=== PATIENT | male | born 1965 | race Caucasian/White ===

== ENCOUNTER 2018-07-24 09:50 | Emergency (ER) | payer MEDICARE, SELFPAY ==
[2018-07-24 09:51] VITALS: BP 123/73; PULSE 68; RESP 16; TEMP 36.3; O2SAT 96; BMI 26.4
--- NOTE | 2018-07-24 10:11 | EKG12_ITS ---
Test Reason : DYSRHYTHMIA Blood Pressure : / mmHG Vent. Rate : 064 BPM Atrial Rate : 064 BPM P-R Int : 152 ms QRS Dur : 092 ms QT Int : 390 ms P-R-T Axes : 050 000 007 degrees QTc Int : 402 ms Normal sinus rhythm Normal ECG Confirmed by SUSHIL NUNEZ, TREY ([id number]), editorial director ANN HILTON ([id number]) on 07/29/2018 9:08:02 AM Referred By: YOLIS Confirmed By:TREY LING MD
--- NOTE | 2018-07-24 10:11 | RAD_ITS ---
STUDY: X-RAY CHEST REASON FOR EXAM: Male, 53 years old. Shortness of breath. TECHNIQUE: PA and lateral views of the chest. COMPARISON: Comparison is made with prior study dated September 18, 2015. FINDINGS: EKG electrodes are seen. There is evidence of a focal infiltrate in the left upper lobe as well as in the left lower lobe. There is blunting of the left costophrenic angle. The right lung is clear. Normal size heart. Normal mediastinum and ama. Normal visualized pulmonary arteries. Normal visualized aortic arch and descending thoracic aorta. There are degenerative changes of the visualized thoracic spine. Normal visualized ribs, clavicles, and shoulders. There is no demonstrated abnormality of the visualized soft tissue structures of the upper abdomen. RAD/Chest PA and Lateral IMPRESSION: Focal left upper and left lower lobe infiltrates with blunting of the left costophrenic angle. Electronically Signed: Juan Diego Hawthorne MD at 11:14 EST Tel [phone], Service support ,
--- NOTE | 2018-07-24 10:17 | ED.VISSUMM ---
- ER Visit Summary Date of Service: 07/24/18 Chief Complaint: Shortness of breath History of Present Illness: The patient is a 53 M who presents with shortness of breath that has been getting worse over the past 3 days. Patient went to the urgent care today and was referred here. Patient states he has been having some blood-streaked sputum this morning. Patient states he has had a fever of 101 at home. Patient admits to diffuse myalgias. Patient states he has pain over the left side of his chest that is worse with deep breathing and coughing. Patient describes a stabbing. Patient denies any vomiting but admits to some nausea. Patient denies any abdominal pain. Patient denies any recent travel or recent surgery. Patient denies any history of blood clots or cancer. Physical Examination: Vital signs are stable. Patient is afebrile. Patient is in no acute distress. Oral mucosa is pink and moist. Neck is supple. Trachea is midline. There is no JVD noted. Heart was regular rate and rhythm. Lungs showed a few rales in the left base. There is good respiratory effort noted. Abdomen is soft and nontender. Cranial nerves II through XII are intact. There are no focal motor or sensory deficits noted. The remaining physical exam is within normal limits. Test Results: EKG showed normal sinus rhythm with a rate of 64. There are no acute ST or T wave changes. CBC, basic metabolic profile, d-dimer, and troponin were obtained. There is a mild leukocytosis of 15.0. The remaining labs are within normal limits. PA and lateral chest x-ray was obtained. There is a left upper lobe and left lower lobe infiltrate. Emergency Department Course and Treatment: Patient was given DuoNeb aerosol here. Patient was feeling better on reevaluation. Patient was given a prescription for Zithromax. Patient was also given a prescription for albuterol inhaler. Patient was instructed to follow-up with his primary care physician in 5-7 days. Patient understood and was agreeable with plan. All questions were answered. Disposition: Discharge home Impression: Community-acquired pneumonia This note was generated with [employer] software. It may contain incorrect words, spelling, and punctuation that were not noted in review of the chart prior to signing ED Disposition - Plan for ED Patient: Disposition: Home or Assisted Living Chief Complaint: Shortness of Breath Diagnosis: Community acquired pneumonia Instructions: ED Pneumonia Adult Prescriptions: Albuterol Inhaler [Ventolin Hfa] 2 puff INHALATION Q4H PRN PRN #1 inhaler PRN Reason: Wheezing Azithromycin [Zithromax Z-Anuj] 250 mg PO UD #1 box Referrals: [facility] Doctor,Out of [NON-STAFF] - Additional Instructions: Your prescriptions were electronically sent to [facility] pharmacy. Take the antibiotic until gone. Use the inhaler as needed. Follow-up with your primary care physician in 5-7 days.
--- NOTE | 2018-07-24 10:21 | ED.DCSUM_ITS ---
- ER Visit Summary Date of Service: 07/24/18 Chief Complaint: Shortness of breath History of Present Illness: The patient is a 53 M who presents with shortness of breath that has been getting worse over the past 3 days. Patient went to the urgent care today and was referred here. Patient states he has been having some blood-streaked sputum this morning. Patient states he has had a fever of 101 at home. Patient admits to diffuse myalgias. Patient states he has pain over the left side of his chest that is worse with deep breathing and coughing. Patient describes a stabbing. Patient denies any vomiting but admits to some nausea. Patient denies any abdominal pain. Patient denies any recent travel or recent surgery. Patient denies any history of blood clots or cancer. Physical Examination: Vital signs are stable. Patient is afebrile. Patient is in no acute distress. Oral mucosa is pink and moist. Neck is supple. Trachea is midline. There is no JVD noted. Heart was regular rate and rhythm. Lungs showed a few rales in the left base. There is good respiratory effort noted. Abdomen is soft and nontender. Cranial nerves II through XII are intact. There are no focal motor or sensory deficits noted. The remaining physical exam is within normal limits. Test Results: EKG showed normal sinus rhythm with a rate of 64. There are no acute ST or T wave changes. CBC, basic metabolic profile, d-dimer, and troponin were obtained. There is a mild leukocytosis of 15.0. The remaining labs are within normal limits. PA and lateral chest x-ray was obtained. There is a left upper lobe and left lower lobe infiltrate. Emergency Department Course and Treatment: Patient was given DuoNeb aerosol here. Patient was feeling better on reevaluation. Patient was given a prescription for Zithromax. Patient was also given a prescription for albuterol inhaler. Patient was instructed to follow-up with his primary care physician in 5-7 days. Patient understood and was agreeable with plan. All questions were answered. Disposition: Discharge home Impression: Community-acquired pneumonia This note was generated with [employer] software. It may contain incorrect words, spelling, and punctuation that were not noted in review of the chart prior to signing ED Disposition - Plan for ED Patient: Disposition: Home or Assisted Living Chief Complaint: Shortness of Breath Diagnosis: Community acquired pneumonia Instructions: ED Pneumonia Adult Prescriptions: Albuterol Inhaler [Ventolin Hfa] 2 puff INHALATION Q4H PRN PRN #1 inhaler PRN Reason: Wheezing Azithromycin [Zithromax Z-Anuj] 250 mg PO UD #1 box Referrals: [facility] Doctor,Out of [NON-STAFF] - Additional Instructions: Your prescriptions were electronically sent to [facility] pharmacy. Take the antibiotic until gone. Use the inhaler as needed. Follow-up with your primary care physician in 5-7 days.
[2018-07-24 10:25] VITALS: BP 118/73; PULSE 76; RESP 15; TEMP 36.3; O2SAT 96
[2018-07-24] MEDS: Ipratropium/Albuterol Sulfate 3 ML AMPUL.NEB INHALATION (10:25)
[2018-07-24 10:28] VITALS: O2SAT 96
[2018-07-24 10:33] VITALS: PULSE 78; RESP 16
[2018-07-24 10:41] LABS: Absolute Lymphocyte Count 1.56 X10^3/ul (0.83-4.51); Basophil# 0.03 X10^3/uL; Basophil% 0.2 % (0-1); Eosinophil# 0.04 X10^3/uL; Eosinophils% 0.3 % (0-5); Hemoglobin 15.6 g/dl (13.0-16.5); Lymphocyte # 1.56 X10^3/ul (4.0); Lymphocyte % 10.4 % (19-41); Mean Corp Hgb Conc 33.2 g/gl (32-36); Mean Corpuscular Hgb 30.6 pg (27.0-32.0); Mean Corpuscular Volume 92.3 fL (80-94); Mean Platelet Vol. 11.2 fl (6.2-12.0); Monocyte# 1.28 X10^3/uL; Monocyte% 8.6 % (0-10); Neutrophil # 12.01 X10^3/uL (2.7-7.7); Neutrophil % 80.2 % (47-70); Platelet Count 175 K/mm3 (150-450); RBC Distribution Width CV 13.1 % (11.6-14.6); RBC Distribution Width SD 43.3 fl (35.1-43.9); Red Blood Count 5.09 M/mm3 (4.6-6.2)
[2018-07-24 10:42] LABS: POSITIVE COUNT NO; POSITIVE DIFFERENTIAL NO; POSITIVE MORPHOLOGY NO
[2018-07-24 10:50] LABS: D-Dimer Quantitative (DVT/PE) 0.46 FEU/ug/m (0.27-0.49)
[2018-07-24 10:59] LABS: Anion Gap 8 (5-15); BUN 16 mg/dL (7-18); BUN/Creat Ratio 24.7 RATIO (10-20); Calcium,Total 9.2 mg/dL (8.5-10.1); Chloride 103 mmol/L (98-107); Creatinine, Serum 0.65 mg/dL (0.70-1.30); EST Glomerular Filtration Rate 137 mL/min (>60); Est Glom Filt Rate - Afr Amer 166 mL/min (>60); Estimated Creatinine Clearance 144.26 ml/min; Glucose 150 mg/dL (74-106); Potassium 3.9 mmol/L (3.5-5.1); Sodium Level 138 mmol/L (136-145)
[2018-07-24 11:16] VITALS: BP 122/74; PULSE 77; RESP 22; TEMP 36.3; O2SAT 92
[2018-07-24 11:42] VITALS: BP 100/59; PULSE 79; RESP 16; O2SAT 94
--- OUTSIDE RECORDS SUMMARY | 2018-09-28 05:17 | XMS RPT_ITS ---
:1965 Author Organization OHIP Care Team Providers Name Role Phone JUSTIN DARNELL Attending Unavailable Charlotte Momin Attending Unavailable Charlotte Momin Referring Unavailable Merrill, Charlotte Primary Care Unavailable Harry Hines Attending Unavailable Primay Care Physicia, No Primary Care Unavailable PROBLEMS PROBLEMS DATE TYPE CONDITION / ATTENDING STATUS SOURCE CODE 06/11/2018 Admitting Occlusion and Merrill, Active [employer] Diagnosis stenosis of [place] System bilateral Repository carotid arteries / I65.23(ICD-10) 06/11/2018 Admitting Localized Merrill, Active [employer] Diagnosis enlarged lymph [place] System nodes / Repository R59.0(ICD-10) 06/09/2018 Active Adverse effect JUSTIN DARNELL Active [facility] Other [place] synthetic Repository narcotics, initial encounter / T40.4X5A(ICD-10 ) PROCEDURES PROCEDURES No Procedure Records FoundRESULTS RESULTS 12 LEAD ELECTROCARDIOGRAM Observed: 07/29/2018 Status: F Source: [place] 9:08 AM [facility] REPOSITORY [facility] Cardiovascular Services [address] [place] [address] 35067 12 Lead EKG 07/24/18 1020 MR#: [id number] Acct: [id number] Name: CLEMENTINA LOVE Rep #: [id number] : 1965 53 From: Chao Gandhi MD Attending Dr: Status: DEP ER Ordering Dr: Harry Hines DO Date: 07/24/18 Location: ED Sex: M C Admitted: Test Reason : DYSRHYTHMIA Blood Pressure : / mmHG Vent. Rate : 064 BPM Atrial Rate : 064 BPM P-R Int : 152 ms QRS Dur : 092 ms QT Int : 390 ms P-R-T Axes : 050 000 007 degrees QTc Int : 402 ms Normal sinus rhythm Normal ECG Confirmed by CHAO GANDHI MD ([id number]), food expeditor ANN HILTON ([id number]) on 07/29/2018 9:08:02 AM Referred By: YOLIS Confirmed By:CHAO GANDHI MD 07/29/18 0908 Date Chao Gandhi MD CC: No Primary Care Physician; Harry Hines DO Signed EMERGENCY DEPARTMENT Observed: 07/24/2018 Status: F Source: [place] SUMMARY 11:40 AM [facility] REPOSITORY [facility] Medical Records Department [address] [facility] [place] [address] Emergency Department Summary 07/24/18 1017 MR#: [id number] Acct: [id number] Name: CLEMENTINA LOVE Rep #: [id number] : 1965 53 From: Harry Hines DO PCP: Care Physician, No Primary Status: REG ER - ER Visit Summary Date of Service: 07/24/18 Chief Complaint: Shortness of breath History of Present Illness: The patient is a 53 M who presents with shortness of breath that has been getting worse over the past 3 days. Patient went to the urgent care today and was referred here. Patient states he has been having some blood- streaked sputum this morning. Patient states he has had a fever of 101 at home. Patient admits to diffuse myalgias. Patient states he has pain over the left side of his chest that is worse with deep breathing and coughing. Patient describes a stabbing. Patient denies any vomiting but admits to some nausea. Patient denies any abdominal pain. Patient denies any recent travel or recent surgery. Patient denies any history of blood clots or cancer. Physical Examination: Vital signs are stable. Patient is afebrile. Patient is in no acute distress. Oral mucosa is pink and moist. Neck is supple. Trachea is midline. There is no JVD noted. Heart was regular rate and rhythm. Lungs showed a few rales in the left base. There is good respiratory effort noted. Abdomen is soft and nontender. Cranial nerves II through XII are intact. There are no focal motor or sensory deficits noted. The remaining physical exam is within normal limits. Test Results: EKG showed normal sinus rhythm with a rate of 64. There are no acute ST or T wave changes. CBC, basic metabolic profile, d-dimer, and troponin were obtained. There is a mild leukocytosis of 15.0. The remaining labs are within normal limits. PA and lateral chest x-ray was obtained. There is a left upper lobe and left lower lobe infiltrate. Emergency Department Course and Treatment: Patient was given DuoNeb aerosol here. Patient was feeling better on reevaluation. Patient was given a prescription for Zithromax. Patient was also given a prescription for albuterol inhaler. Patient was instructed to follow-up with his primary care physician in 5-7 days. Patient understood and was agreeable with plan. All questions were answered. Disposition: Discharge home Impression: Community-acquired pneumonia This note was generated with Social DJ dictation software. It may contain incorrect words, spelling, and punctuation that were not noted in review of the chart prior to signing ED Disposition - Plan for ED Patient: Disposition: Home or Assisted Living Chief Complaint: Shortness of Breath Diagnosis: Community acquired pneumonia Instructions: ED Pneumonia Adult Prescriptions: Albuterol Inhaler [Ventolin Hfa] 2 puff INHALATION Q4H PRN PRN #1 inhaler PRN Reason: Wheezing Azithromycin [Zithromax Z-Anuj] 250 mg PO UD #1 box Referrals: [facility] Doctor,Out of [NON-STAFF] - Additional Instructions: Your prescriptions were electronically sent to [facility]. Take the antibiotic until gone. Use the inhaler as needed. Follow-up with your primary care physician in 5-7 days. What to do if you have Problems For any increased pain, shortness of breath, bleeding, nausea or vomiting, chest pain, or any unexpected problems, contact your Primary Care Provider. Call [facility] ([phone]) or report to the closest Emergency Room. Call 911 if necessary. 07/24/18 1140 <Electronically signed by Harry Hines DO> Date Harry Yolis DO Maritzaignniki Signature (If Indicated): Date CC: No Primary Care Physician CBC W/DIFF, AUTOMATED Collected: 07/24/2018 Status: F Source: [place] 10:27 AM [facility] REPOSITORY TYPE CODE TESTS RESULT OUT OF RANGE REFERENCE UNITS LAB L100.1000 4.4-11.0 K/mm3 High WBC 15.0 LAB L100.1200 4.6-6.2 M/mm3 Normal RBC 5.09 LAB L100.1300 13.0-16.5 g/dl Normal HGB 15.6 LAB L100.1400 40-54 % Normal HCT 47.0 LAB L100.1500 80-94 fL Normal MCV 92.3 LAB L100.1600 27.0-32.0 pg Normal MCH 30.6 LAB L100.1700 32-36 g/gl Normal MCHC 33.2 LAB L100.1810 11.6-14.6 % Normal RDW CV 13.1 LAB L100.1820 35.1-43.9 fl Normal RDW SD 43.3 LAB L100.1900 150-450 K/mm3 Normal PLT 175 LAB L100.2000 6.2-12.0 fl Normal MPV 11.2 LAB L100.2100 47-70 % High NEUT% 80.2 LAB L100.2200 19-41 % Low LY% 10.4 LAB L100.2300 0-10 % Normal MONO% 8.6 LAB L100.2400 0-5 % Normal EO% 0.3 LAB L100.2500 0-1 % Normal BASO% 0.2 LAB L100.2550 0.0-0.9 % Normal IM GRAN % 0.300 Result Comment: IG% - Immature Granulocytes (promyelocytes, myelocytes and metamyelocytes) > 1% indicates that a LEFT SHIFT is Present. LAB L100.2620 2.0-7.7 X10 3/uL High Absolute Neut 12.0 LAB L100.2720 0.83-4.51 X10 3/ul Normal Absolute Lymph 1.56 Performed By: #### L100.0100 #### [facility] [address] [place], [address] D-DIMER QUANTITATIVE Collected: 07/24/2018 Status: F Source: [place] (DVT/PE) 10:27 AM [facility] REPOSITORY TYPE CODE TESTS RESULT OUT OF RANGE REFERENCE UNITS LAB L300.8000 0.27-0.49 FEU/ug/m Normal D-DIMER 0.46 QUANT Result Comment: NORMAL D-Dimer level (<0.50) indicates no DVT or PE. Performed By: #### L300.8000 #### [facility] [address] [place], [address] BASIC METABOLIC Collected: 07/24/2018 Status: F Source: [place] PROFILE (BMP) 10:27 AM [facility] REPOSITORY TYPE CODE TESTS RESULT OUT OF RANGE REFERENCE UNITS LAB L501.0100 74-106 mg/dL High GLU 150 Result Comment: Fasting Glucose result greater than or equal to 126 mg/dL suggests DIABETES MELLITUS per A.D.A. criteria. Please note revised GLUCOSE reference range effective 2017. LAB L501.1000 7-18 mg/dL Normal BUN 16 LAB L501.1100 0.70-1.30 mg/dL Low CREAT,SERUM 0.65 Result Comment: The validity of the calculated GFR AND GFRAA in patients over 70 years has not been determined. Clinical correlation is essential. LAB L501.1110 >60 mL/min Normal EST GFR 137 Result Comment: Non- GFR Calc LAB L501.1115 >60 mL/min Normal EST GFR - AA 166 Result Comment: GFR Calc LAB L501.1255 ml/min Normal Estimated CRCL 144.26 LAB L501.1300 10-20 RATIO High BUN/CRE 24.7 LAB L501.2200 8.5-10 mg/dL .1 CA Normal 9.2 LAB L501.5300 136-14 mmol/L 5 NA Normal 138 LAB L501.5600 3.5-5. mmol/L 1 K Normal 3.9 LAB L501.5900 98-107 mmol/L CL Normal 103 LAB L501.6100 21.0-3 mmol/L 2.0 CO2 Normal 27.0 LAB L501.6200 5-15 GAP Normal 8 Performed By: #### L500.2500, L501.4010 #### [facility] [address] [place], [address] TROPONIN-I Collected: 07/24/2018 Status: F Source: [place] 10:27 AM [facility] REPOSITORY TYPE CODE TESTS RESULT OUT OF RANGE REFERENCE UNITS LAB L501.4010 <0.045 ng/mL Normal < 0.015 TROPONIN-I Result Comment: TROPONIN-I EXPECTED VALUES <0.045 Negative 0.045 - 0.590 Consistent with Cardiac Damage > OR = 0.600 Critical Value Not every elevated troponin is indicative of NJ. These values should be used with clinical judgement in examining the patient's clinical picture for diagnosis. To establish a diagnosis of NJ versus myocardial injury, there must be a demonstrated rise and/or fall in the troponin values, in addition to ischemic symptoms, EKG changes, new regional wall motion abnormality, and/or angiographical evidence. PLEASE NOTE: REFERENCE RANGES EDITED 17 Performed By: #### L500.2500, L501.4010 #### [facility] [address] [place], [address] CHEST PA AND LATERAL Observed: 07/24/2018 Status: F Source: [place] 10:13 AM [facility] REPOSITORY [facility] Imaging Services [address] [place] [address] Chest PA and Lateral MR#: [id number] Acct: [id number] Name: CLEMENTINA LOVE Rep #: [id number] : 1965 M 53 From: Juan Diego Hawthorne MD PCP: Care Physician, No Primary Status: REG ER Study: Chest PA and Lateral Date of Exam: 07/24/18 Exam# [id number] Ordering Dr: Harry Hines DO STUDY: X-RAY CHEST REASON FOR EXAM: Male, 53 years old. Shortness of breath. TECHNIQUE: PA and lateral views of the chest. COMPARISON: Comparison is made with prior study dated September 18, 2015. FINDINGS: EKG electrodes are seen. There is evidence of a focal infiltrate in the left upper lobe as well as in the left lower lobe. There is blunting of the left costophrenic angle. The right lung is clear. Normal size heart. Normal mediastinum and ama. Normal visualized pulmonary arteries. Normal visualized aortic arch and descending thoracic aorta. There are degenerative changes of the visualized thoracic spine. Normal visualized ribs, clavicles, and shoulders. There is no demonstrated abnormality of the visualized soft tissue structures of the upper abdomen. RAD/Chest PA and Lateral IMPRESSION: Focal left upper and left lower lobe infiltrates with blunting of the left costophrenic angle. Electronically Signed: Juan Diego Hawthorne MD at 11:14 EST Tel [phone], Service support , CC: No Primary Care Physician; Harry Hines DO Credit Risk Specialist: Signed VL CAROTID DUPLEX Observed: 06/11/2018 Status: F Source: [place] ULTRASOUND COMPLETE 3:19 PM SYSTEM REPOSITORY Patient Name: CLEMENTINA LOVE Ultrasound Exam Date/Time 06/11/2018 11:30:00 EST Exam VL Carotid Duplex Ultrasound Complete Ordering Physician MD MOMIN CATHERINE Accession Number [id number] CPT4 Codes 30019 () Reason For Exam Other specified symptoms and signs involving the circulatory and respiratory systems Report BILATERAL CAROTID ULTRASOUND: CLINICAL INDICATION: Carotid bruit. TECHNIQUE: Two-dimensional, Color-flow and spectral Doppler sonography of the extracranial arterial circulation was performed. COMPARISON: None. FINDINGS: RIGHT: Plaque: Minor non-calcified and calcified plaque CCA peak systolic: 132 cm/sec CCA end diastolic: 24 cm/sec ICA peak systolic: 109 cm/sec ICA end diastolic: 31 cm/sec ICA/CCA ratio: 0.8 Estimated ICA stenosis: less than 50% ECA systolic: 113 cm/sec Vertebral: Antegrade LEFT: Plaque: Minor non-calcified and calcified plaque CCA peak systolic: 140 cm/sec CCA end diastolic: 27 cm/sec ICA peak systolic: 99 cm/sec ICA end diastolic: 17 cm/sec ICA/CCA ratio: 0.7 Estimated ICA stenosis: less than 50% ECA systolic: 105 cm/sec Vertebral: Antegrade Other: There is a left level two lymph node with a fatty hilum measuring 11 mm in short axis. IMPRESSION: 1. No hemodynamically significant internal carotid stenosis (less than 50% stenosis) on the left and right. 2. Incidental note is made of a left level two lymph node measuring 11 mm in short axis. Follow-up ultrasound of the head and neck is recommended to evaluate for stability/resolution. Reference: Measurement of carotid stenosis is a ratio based on conventional angiographic data from the NASCET trials with the smallest caliber of the internal carotid as the numerator and normal post-stenotic internal carotid caliber as denominator. Stenosis based upon Society of Radiologists in Ultrasound consensus: <50%: ICA PS <125 cm/sec, ICA ED <40 cm/sec, ICA/CCA ratio <2.0 50-69%: ICA PS 125-230 cm/sec , ICA ED 40-100 cm/sec, ICA/CCA ratio 2-4 >70%: ICA PS >230 cm/sec, ICA ED >100 cm/sec, ICA/CCA ratio >4 Report Dictated on Final Dictating Physician: MD BECKY, JULIO CHAPARRO Signed Date and Time: 06/11/2018 3:24 pm Signed by: MD PENA GEORGE RICHARD Transcribed Date and Time: 06/11/2018 3:25 ED NOTE Observed: 06/09/2018 Status: COMPLETED Source: [place] 11:47 PM [facility] REPOSITORY HNO ID: [id number] Author: Grace (Rn) ANDREA Hdez Service: Emergency Medicine Author Type: Registered Nurse Type: ED Notes Filed: 06/09/2018 11:47 PM Note Text: Dc instr to fu w pmd tomorrow, return prn, meds as rxd. Verb und. Pt is AANDO, wdp, resps even and unlabored, cheerful and talkative. Agreeable to plan. ED PROV NOTE Observed: 06/09/2018 Status: COMPLETED Source: [place] 11:30 PM [facility] REPOSITORY HNO ID: [id number] Author: Justin Salcedo DO Service: Emergency Medicine Author Type: Physician Type: ED Provider Notes Filed: 06/09/2018 11:49 PM Note Text: ED Provider Note Patient Name: Clementina Love SERVICE DATE: 06/09/18 History Patient presents with: Rash Clementina Love is a 53 year old male with history of chronic pain who presents with a new face/head rash that is described as itching. Patient used no treatment prior to arrival. - Patient was exposed to new medications. - Symptoms began this morning. Onset was gradual. - Severity: moderate - Symptoms are exacerbated by using new medication Belbuca strips. - Symptoms are not exacerbated by rest. - Symptoms are associated with vomiting and dizziness, and mild headaches. - Symptoms are not associated with body aches, chills, fever, throat tightness, wheezing and chest pain and shortness of breath. - Improved by nothing. - Not improved by anything. Patient has chronic pain and is in pain management and states he was switched to Belbuca to take with his norco for pain. He took his first dose yesterday and vomited right after putting the strip on his gums. He states today he put a strip on his upper gums then a rash started around his mouth adjacent to where the strip was located. It did the same thing when he put it on his lower gum. He states he felt a little dizzy and vomited after using the Belbuca strips as well. He states he did take a norco and symptoms are feeling better then earlier. He states he was doing well on the norco and previous medication they had him on and is not sure why they changed his medication. Patient is diabetic, states his blood sugars have been running good and just had his A1C checked and was told it was good. PAST MEDICAL HISTORY Diagnosis Date - Carpal tunnel syndrome - Chronic pain low back - Myalgia - Nonallopathic lesion of cervical region - Nonallopathic lesion of lumbar region - Opioid type dependence, continuous (HCC) - Peripheral neuropathy - Radiculopathy of lumbar region - Rheumatoid arthritis (HCC) - Shoulder pain, left PAST SURGICAL HISTORY Procedure Laterality Date - BACK SURGERY HX No family history on file. Social History Social History Main Topics - Smoking status: Current Every Day Smoker Packs/day: 1.00 Years: 25.00 Types: Cigarettes - Smokeless tobacco: Never Used - Alcohol use No - Drug use: No - Sexual activity: Not on file ALLERGIES No Known Allergies Review of Systems Constitutional: Negative for chills and fever. HENT: Negative for drooling, facial swelling, mouth sores, sore throat and trouble swallowing. Eyes: Negative for photophobia and visual disturbance. Respiratory: Negative for cough, shortness of breath and stridor. Cardiovascular: Negative for chest pain. Gastrointestinal: Positive for nausea and vomiting. Negative for abdominal pain and diarrhea. Skin: Positive for rash (itchy, red rash around mouth). Negative for wound. Allergic/Immunologic: Negative for immunocompromised state. Neurological: Positive for dizziness and headaches (noticed some mild headaches since starting the Belbuca). Negative for syncope, speech difficulty, weakness and numbness. Psychiatric/Behavioral: Negative for agitation and confusion. Physical Exam BP 142/80 Pulse 70 Temp (Src) 98.2 (Temporal Artery) Resp 16 Ht 6' 0 (1.83m) Wt 186 lb (84.4kg) SpO2 98% BMI 25.22 kg/(m2). Physical Exam Constitutional: He is oriented to person, place, and time. He appears well-developed and well-nourished. No distress. HENT: Head: Normocephalic and atraumatic. Right Ear: External ear normal. Left Ear: External ear normal. Mouth/Throat: Uvula is midline and oropharynx is clear and moist. No oral lesions. No trismus in the jaw. No uvula swelling. No oropharyngeal exudate, posterior oropharyngeal edema, posterior oropharyngeal erythema or tonsillar abscesses. Eyes: Pupils are equal, round, and reactive to light. Conjunctivae and EOM are normal. No scleral icterus. Neck: Normal range of motion. Neck supple. No JVD present. Cardiovascular: Normal rate, regular rhythm and intact distal pulses. Pulmonary/Chest: Effort normal and breath sounds normal. No stridor. No respiratory distress. Abdominal: Soft. Bowel sounds are normal. He exhibits no distension. There is no tenderness. Neurological: He is alert and oriented to person, place, and time. He has normal strength. No cranial nerve deficit or sensory deficit. He exhibits normal muscle tone. GCS eye subscore is 4. GCS verbal subscore is 5. GCS motor subscore is 6. Skin: Skin is warm and dry. Capillary refill takes less than 2 seconds. Rash noted. Rash is urticarial. He is not diaphoretic. Blanching urticarial rash around upper and lower lips. No crepitus. No tenderness. No lip swelling. No angioedema. Tongue normal. Psychiatric: He has a normal mood and affect. His behavior is normal. Nursing note and vitals reviewed. Diagnostic Testing ED Labs Ordered and Reviewed GLUCOSE, BLOOD (POC) - Abnormal; Notable for the following: Result Value Ref Range GLUCOSE METER 161 (*) 70 - 99 mg/dL All other components within normal limits GLUCOSE - ED(POC) Procedures ED Course / Clinical Impression Clinical Impressions as of Jun 09 2330 Adverse effect of buprenorphine, initial encounter MDM / Disposition / Plan Patient having rash secondary to new medication Belbuca. It is adjacent to where he puts the strips, it's itchy. He also appears to be having side effects from the Belbuca with dizziness, vomiting, headaches which are known side effects of this medication. Symptoms are associated right with the start of the medication. He did not have these symptoms prior to the start of Belbuca. His symptoms are currently better since removing the belbuca strip and taking a norco. He is neurologically intact. I treated him here for the rash/localized reaction to the belbuca with steroids and pepcid. I instructed him not to take the Belbuca and call his pain management doctor first thing in the morning for further instructions on his pain medication regimen. Instructed him to return to the ED for new/worsening symptoms. Patient is agreeable to plan. Disposition The patient was discharged. Counseled patient regarding suspected diagnosis. As well as the need for follow-up. Discharged home with verbal and written instructions. They were instructed to return as needed for persistent or worsening symptoms or any new concerns. Condition at disposition is stable. SIGNATURE: DO Justin Reina DO 06/09/18 2349 ED NOTE Observed: 06/09/2018 Status: COMPLETED Source: [place] 11:11 PM [facility] [place] REPOSITORY HNO ID: [id number] Author: Natan Moctezuma (Rn) ANDREA Gage Service: (none) Author Type: Registered Nurse Type: ED Notes Filed: 06/09/2018 11:12 PM Note Text: accucheck 161. Dr Darnell advised GLUCOSE METER Collected: 06/09/2018 Status: F Source: [facility] 11:10 PM [facility] REPOSITORY TYPE CODE TESTS RESULT OUT OF REFERENCE UNITS RANGE LAB LGLUB(LOINC 70-99 mg/dL ) High Glucose Meter 161 Result Comment: NOTIFIED Testing performed at [address] [address] Performed By: #### LGLMT #### [facility] [address] [address] ED NOTE Observed: 06/09/2018 Status: COMPLETED Source: [place] 11:09 PM [facility] REPOSITORY HNO ID: [id number] Author: Natan Moctezuma (Rn) Too RN Service: (none) Author Type: Registered Nurse Type: ED Notes Filed: 06/09/2018 11:12 PM Note Text: Patient informed the name of medication, why we are giving it, possible side effects, what they may expect to feel, and was offered a chance to ask questions, prior to the administration of pepcid and prednisone. ED NOTE Observed: 06/09/2018 Status: COMPLETED Source: [place] 11:08 PM [facility] REPOSITORY HNO ID: [id number] Author: Grace (Rn) ANDREA Hdez Service: Emergency Medicine Author Type: Registered Nurse Type: ED Notes Filed: 06/09/2018 11:08 PM Note Text: Patient informed: the name of medication, why we are giving it, possible side effects, what they may expect to feel, and was offered a chance to ask questions, prior to the administration of prednisone, pepcid ED NOTE Observed: 06/09/2018 Status: COMPLETED Source: [place] 10:51 PM [facility] REPOSITORY HNO ID: [id number] Author: Grace BondRn) ANDREA Hdez Service: Emergency Medicine Author Type: Registered Nurse Type: ED Notes Filed: 06/09/2018 11:04 PM Note Text: Pt taking new medication, belbuca film applied to gums. sts he has taken a total of 4 films and has vomited each time. sts put a film in lower lip this morning and developed a rash on his face in that area, tonight he used another film in his upper lip and developed a rash on face in area of upper lip. SHOULDER 3V OR MORE Observed: 03/13/2018 Status: F Source: [facility] AP/TRUE AP/OTHER LEFT 6:12 PM [facility]ALTH SYSTEM REPOSITORY Performed at [facility] APPROVED BY: DAKOTA TOBIN MD EXAMINATION: SHOULDER 3V OR MORE AP/TRUE AP/OTHER LEFT HISTORY: Patient fell onto the left shoulder 2 years ago with persistent pain. . TECHNIQUE: AP, lateral, and oblique views of the left shoulder were obtained. COMPARISON: None. RESULT: The glenohumeral and acromioclavicular joint spaces are grossly preserved. The acromiohumeral interval is within normal limits. There is no acute fracture or dislocation. There is multilevel degenerative change seen within the thoracic spine. IMPRESSION: No acute findings. No significant shoulder osteoarthritis. ALLERGIES ALLERGIES DATE TYPE / CODE NAME / CODE REACTION SEVERITY SOURCE 07/24/2018 Drug morphine/[id number] Upset Stomach Unknown [facility] Allergy/416 545(RXNORM) [facility] 526512(SNOM Repository ED CT) Drug NO KNOWN [facility] Class/88656 ALLERGIES Other [place] 1003(SNOMED Repository CT) ENCOUNTERS ENCOUNTERS ADMIT/DISCHARGE ACCOUNT NUMBER ADMITTING ENCOUNTER LOCATION SOURCE CLASS 07/24/2018/07/24/19 [id number] Emergency [address] ding:ED Repository 06/11/2018 [id number] Ambulatory [facility] Repository 06/09/2018/06/09/20 [id number] Emergency [address] Other [place] Repository PAYERS PAYERS ENCOUNTER GUARANTOR PAYER SUBSCRIBER SOURCE 07/24/2018 [facility] [id number] [facility] [place]: [facility] *IN [facility] [id number] [place], [place] Number: Repository [id number]: [phone] [id number] [phone] (HP) Date:[id number] CLAIMS DEPO [address] [address]IO: 07/24/2018 Secondary NOT GIVENUNK Claudia Insurance:SELF PAY [facility] Number: Effective Repository Date:2018-07-24 06/11/2018 [facility] PittmanDOB: Insurance:[facility] PitanDOB: [facility] Number: [id number] Repository Adal Effective Date: [place], [place] [address]Sup: () 06/11/2018 [facility] Insurance:[facility] [place] JOB: System olicy Number: [id number] Repository Effective Date:
== END 2018-07-24 11:52 | disposition home or self-care (01) ==
PROVIDERS: Emergency Provider Emergency Medicine
DX: J18.9 Pneumonia, unspecified organism (principal); E11.9 Type 2 diabetes mellitus without complications; R11.0 Nausea; Z72.0 Tobacco use; Z79.84 Long term (current) use of oral hypoglycemic drugs; Z79.899 Other long term (current) drug therapy
CPT/HCPCS: 71046; 80048; 84484; 85025; 85379; 93005; 94640; 99284; A4216

== ENCOUNTER → 2018-08-28 12:04 | Outpatient (CLI) | payer MEDICARE, SELFPAY ==
--- NOTE | 2018-08-28 12:14 | RAD_ITS ---
STUDY: X-RAY CHEST REASON FOR EXAM: Male, 53 years old. Chest pain and cough TECHNIQUE: PA and lateral views of the chest. COMPARISON: 07/24/2018 FINDINGS: Previously noted infiltrates in the left lung have resolved. There are interstitial fibrotic changes of the lungs. There is no demonstrated pleural abnormality. Normal size heart. Normal mediastinum and ama. Normal visualized pulmonary arteries. Normal visualized aortic arch and descending thoracic aorta. Normal visualized thoracic spine. Normal visualized ribs, clavicles, and shoulders. There is no demonstrated abnormality of the visualized soft tissue structures of the upper abdomen. RAD/Chest PA and Lateral IMPRESSION: Chronic interstitial changes, no acute findings Electronically Signed: Shimon Oneal MD at 17:00 EST , Service support ,
== END ==
PROVIDERS: Referring Provider Family Medicine; Visit Provider Family Medicine
DX: J18.9 Pneumonia, unspecified organism (principal)
CPT/HCPCS: 71046

== ENCOUNTER → 2019-04-15 09:36 | Outpatient (CLI) | payer MEDICARE, SELFPAY ==
[2019-04-15 09:33] VITALS: BMI 26.4
--- NOTE | 2019-04-15 09:37 | RAD_ITS ---
STUDY: X-RAY - LEFT WRIST REASON FOR EXAM: Pain, injury. TECHNIQUE: 3 view(s) of the wrist were obtained. COMPARISON: None. FINDINGS: Normal visualized distal radius and ulna. Normal radiocarpal articulation. Normal distal radioulnar articulation. Normal carpal bones. Normal carpal articulations. Normal carpometacarpal articulation of the thumb. Normal second through fifth carpometacarpal articulations. Normal visualized metacarpal bones. The soft tissue structures are unremarkable. RAD/Wrist min 3 Views IMPRESSION: Normal x-ray examination of the left wrist. Electronically Signed: Brian Farrell MD at 11:37 EDT Tel , Service support ,
== END ==
PROVIDERS: Referring Provider Orthopaedic Surgery; Visit Provider Orthopaedic Surgery
DX: G56.02 Carpal tunnel syndrome, left upper limb (principal)
CPT/HCPCS: 73110

== ENCOUNTER 2019-05-07 07:48 | Day surgery (SDC) | payer MEDICARE, SELFPAY ==
[2019-04-15 09:33] VITALS: BMI 26.4
[2019-05-07] VITALS (7 sets, daily range): BP systolic 99–112; BP diastolic 62–75; PULSE 65–85; RESP 16; TEMP 36.7–36.9; O2SAT 94–97; BMI 25.7
[2019-05-07 08:41] LABS: Bedside Glucose 135 mg/dL (70-110)
[2019-05-07] MEDS: Lactated Ringers 1,000 ML 100 ML IV (08:52)
--- NOTE | 2019-05-07 10:05 | DCINST_ITS ---
Discharge Diet: No Restrictions Discharge Activity: May Not Drive May shower in (days): 1 Ice area for (Minutes): 20 - Every hour while awake. Weight Bearing Status: Weight bearing as tolerated Keep extremity elevated above heart level: Operative Extremity Call your doctor if your incision/area has: Continuous Slow Oozing, Sudden Increased Bleeding, Increased Pain/ Swelling, Increased Redness, Foul Smelling D ischarge Call your doctor if you observe: Fever of 101 or Higher, Coldness, Increased Pain, Numbness or Tingling, Change in Color, Calf discomfort Allergies/Adverse Reactions: Allergies No Known Allergies Allergy (Verified 05/07/19 08:26) Medications to take at Discharge Atorvastatin Calcium [Lipitor] 10 mg PO QHS 06/18/17 Metformin HCl 1,000 mg PO BID 06/18/17 Oxycodone Myristate [Xtampza ER] 13.5 mg PO BID 06/18/17 Albuterol Inhaler [Ventolin Hfa] 2 puff INHALATION Q4H PRN PRN #1 inhaler 07/24/18 Celecoxib [Celebrex] 200 mg PO DAILY 04/30/19 Hydrocodone Bitart/Apap 5-325 [[place] 5MG-325MG] 1 - 2 tablet PO Q6H PRN PRN 5 Days #20 tablet 05/07/19 The following prescriptions were given: Hydrocodone Bitart/Apap 5-325 [[place] 5MG-325MG] 1 - 2 tablet PO Q6H PRN PRN 5 Days #20 tablet PRN Reason: Pain Transmission Status: Sent to [facility] Primary Care Physician: Pablo Mckeon MD [Primary Care Provider] - Test Results: Test results from this visit will be discussed in further detail at your follow- up appointment, if applicable. Please Follow Up With: Aniyah Arriaza, DO - [phone]
--- NOTE | 2019-05-07 10:06 | PCM.OPRPT ---
Report of Operation Date of Procedure: 05/07/19 Pre-Operative Diagnosis: left carpal tunnel syndrome Post-Operative Diagnosis: same Surgery/Procedure Performed:: left ctr Type of Anesthesia:: Lilli Lott Anesthesiologist: Vijay Alcantar Estimated Blood Loss (mL): min Fluids Replaced: 700cc Description of Procedure: Preoperative note Patient is a { 54 } patient with nerve conduction study confirming carpal tunnel syndrome. Patient failed conservative treatment for her carpal tunnel elected proceed with left carpal tunnel release. Risks benefits and alternatives surgery discussed with patient. Risks including but not limited to blood loss, blood clot, infection, neurovascular injury, failure procedure, loss of life and loss of limb. Patient is aware like proceed with left carpal tunnel release. Operative note Patient seen and examined preoperative holding area. Left hand was marked. History and physical and consent reviewed. Patient was brought to the operating room placed supine on the operating table. Sign in, anesthesia, antibiotics were administered. Left upper extremity was prepped and draped after [place] block was initiated. All bony prominences well-padded SCDs placed on bilateral lower extremities. We marked out our incisions for our carpal tunnel release at the intersection of Salbador's line in the fourth ray flexed. We extended about a centimeter and a half. Timeout was performed. We then checked ensure that the Lilli block was working with pickups which it was. We then used a 15 blade to make a skin incision. We then dissected down tenotomy syllable of the transverse carpal ligament. We then used a new 15 blade cut through the transverse carpal ligament down to the level of the median nerve. We then further released the median nerve the combination of the 15 blade and tenotomies. The nerve was grayish in color and adherent to the transverse carpal ligament volarly. We released the transverse carpal ligament distally to the fat pad and then proximally under standard technique. We then palpated to ensure that we released all of the transverse carpal ligament which we did. We irrigated the incision with copious amounts of sterile saline. All bleeders were coagulated. The incision was closed with interrupted 4-0 nylon stitches. Tourniquet was deflated for total working time of 12 minutes. Patient tolerated procedure well there were no complications. Patient transferred to recovery room in stable condition. Postoperative note Hospital pharmacy has prescription Leave dressing clean dry and intact Follow-up in 2 weeks Call with concerns This note was generated with [employer] software. It may contain incorrect words, spelling, and punctuation that were not noted in checking the note before signing.
--- NOTE | 2019-05-07 10:07 | HP.PCM_ITS ---
History and Physical I have re-examined the patient. There are no clinical changes since date of exam. Intake Vital Signs 04/15/19 Body Mass Index (BMI) 26.4 Intake Visit Reasons: Left Hand Allergies morphine Adverse Reaction (Verified 07/24/18 10:36) Upset Stomach Medications Atorvastatin Calcium [Lipitor] 10 mg PO QHS 06/18/17 [History Confirmed 04/15/19] Gabapentin [Gralise] 600 mg PO TID 06/18/17 [History Confirmed 04/15/19] Metformin HCl 500 mg PO 4X/DAY 06/18/17 [History Confirmed 04/15/19] Oxycodone Myristate [Xtampza ER] 13.5 mg PO BID 06/18/17 [History Confirmed 04/15/19] Pantoprazole Sodium [Protonix] 40 mg PO DAILY #30 tab 06/18/17 [Rx Confirmed 04/15/19] Albuterol Inhaler [Ventolin Hfa] 2 puff INHALATION Q4H PRN PRN #1 inhaler 07/24/18 [Rx Confirmed 04/15/19] PFSH Social History (Updated 04/29/19 @ 10:59 by Aniyah Arriaza DO) Smoking Status: Current every day smoker HPI Left Hand: Chief Complaint: left hand pain Details: Parts of this documentation were recorded by a scribe, this documentation accurately reflects the service provided and the decisions made by me, Aniyah Arriaza DO 04/15/19 8500. CLEMENTINA LOVE is a 54 year old M NEW patient here today for left hand pain and numbness/tingling. Patient states he has tried night bracing for about 9 months and this has not been effective. States he has numbness of his 1st through 5th digits. Does have weakness of his left hand. Denies any injections. Denies any x-rays. Had his right CTR completed many years ago. Had an EMG in 02/2019. ROS Const Reports weakness Musc Reports muscle weakness, Reports numbness, Reports tingling Skin/Breast Denies redness, Denies skin swelling Neuro Yes numbness, Yes tingling, Yes weakness Ortho Exam Left Wrist/Hand Left Wrist: Yes ROM-Extension 0-60, Yes ROM-Flexion 0-80, Yes ROM-Pronation 0- 80, Yes ROM-Supination 0-90, Yes Durken's Test and Yes Thenar Atrophy Sensation: Radial: I, Ulnar: D, Median: D Left Elbow Test: No Ulnar Nerve Subluxation ROM: Yes Flexion 0-140, Extension 0, Supination 0-90 and Pronation 0-80 Sensation: Ulnar: D, Median: D Motor: Elbow Extension: 5, Elbow Flexion: 5, EPL: 5, FDP-2: 5, 1st Dorsal Interosseous: 5 Assessment & Plan Problems 1. Left carpal tunnel syndrome G56.02 2. 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 Reviewed the surgical procedure to release the carpal t unnel and possibly the ulnar nerve at the elbow vs wrist pending on emg reports which is pending. Reviewed the pre-operative plans with the patient. Risks and benefits of the procedure were fully explained, including but not limited to infection, neurovascular injury, continued pain, arthritis, stiffness, need for further surgery, re-injury, DVT, PE, general risks of anesthesia, and loss of limb or life. The patient understands all the risks and does wish to proceed with written consent. Follow up post op or sooner if pain, swelling, numbness or associated symptoms, or concerns develop. All questions answered. Patient in agreement of plan. Orders Orders: Wrist min 3 Views 04/15/19 G56.02 Coding Level of Care Code 35756 Diagnoses Left carpal tunnel syndrome G56.02 Entrapment of left ulnar nerve G56.22
[2019-05-07] MEDS: Cefazolin 2 GM in 0.9% Normal Saline 100 ML IV (10:18)
[2019-05-07] MEDS: Mupirocin Ointment 22gm Tube 1 APPLIC (10:57)
== END 2019-05-07 12:11 | disposition home or self-care (01) ==
LOC: SDC 07:50 → AC 07:52
PROVIDERS: Family Provider Family Medicine; PCP Family Medicine; Referring Provider Orthopaedic Surgery; Visit Provider Orthopaedic Surgery
PROC: (CPT 64721; principal; 2019-05-07 09:40)
DX: G56.02 Carpal tunnel syndrome, left upper limb (principal); G56.22 Lesion of ulnar nerve, left upper limb; E11.9 Type 2 diabetes mellitus without complications; J44.9 Chronic obstructive pulmonary disease, unspecified; M06.9 Rheumatoid arthritis, unspecified; F17.200 Nicotine dependence, unspecified, uncomplicated; Z79.84 Long term (current) use of oral hypoglycemic drugs; Z79.899 Other long term (current) drug therapy
CPT/HCPCS: 64721; 82962; J7120; A4216; J2405

== ENCOUNTER 2021-06-06 21:05 | Emergency (ER) | payer MEDICARE, MEDICAID, SELFPAY ==
[2021-06-06 21:06] VITALS: PULSE 63; RESP 19; TEMP 37.1; O2SAT 99; BMI 26.9
[2021-06-06 21:11] VITALS: BP 154/74; PULSE 68; RESP 20; TEMP 37.1; O2SAT 100
--- NOTE | 2021-06-06 21:16 | EKG12_ITS ---
Test Reason : CHEST PAIN Blood Pressure : / mmHG Vent. Rate : 066 BPM Atrial Rate : 066 BPM P-R Int : 150 ms QRS Dur : 086 ms QT Int : 382 ms P-R-T Axes : 063 028 047 degrees QTc Int : 400 ms Normal sinus rhythm Normal ECG Confirmed by CHRISTIANO NUNEZ, CASI ([id number]), editor magazine TENA FLORES ([id number]) on 06/07/2021 10:21:24 AM Referred By: CATRACHITO Confirmed By:CASI ALVARADO MD
--- NOTE | 2021-06-06 21:18 | CT_ITS ---
CTA of the chest abdomen and pelvis INDICATION: Gastric pain and back pain possible dissection TECHNIQUE: CTA of the chest abdomen pelvis was performed in the axial projection following contrast administration followed by sagittal coronal reconstructions. Radiographic technique was optimized to limit patient radiation dose. DLP was 1219.47 FINDINGS: There is mild diffuse interstitial thickening with emphysematous changes in the lower lobes. No focal infiltration or pulmonary nodule. Heart size is normal. There is mild coronary artery calcification. No hilar or mediastinal adenopathy. No pleural effusion or pneumothorax. Minor atherosclerotic changes of the aorta without evidence for aneurysm. Dorsal spine demonstrates mild spondylosis. There is mild prominence of the liver which is fatty infiltrated without mass or bile duct dilatation. Mildly distended gallbladder without calcified stones or pericholecystic edema. Spleen is normal in size and homogeneous attenuation. Pancreas is normal size and homogeneous in appearance. The adrenals are normal size. No evidence for renal obstruction. There is a tiny cyst in the right kidney. There is a rounded lesion in the left renal cortex measuring approximately 3.2 x 2.86 cm which demonstrates attenuation characteristics suggestive of solid mass. MRI recommended for further evaluation Minor atherosclerotic changes of the aorta without evidence for aneurysm, periaortic leak or dissection. No evidence for retroperitoneal adenopathy Stomach is incompletely distended and there is no evidence for small bowel obstruction. The colon demonstrates minor diverticular disease without evidence for acute diverticulitis. No evidence for acute appendicitis. There is mild prominence of the prostate encroaching upon the base of the bladder.. Lumbar spine demonstrates moderate spondylosis CT/CTA Chst, Abd, Pel W and/or WO IMPRESSION: Examination of the chest demonstrates mild COPD and ASHD. No acute infiltration. No evidence for aortic aneurysm periaortic leak or dissection. Examination of the abdomen and pelvis demonstrates nonspecific fatty infiltration of the liver. Mild atherosclerotic changes of the aorta without evidence for aneurysm periaortic leak or dissection. Incidental finding of left renal mass measuring approximately 3.2 x 2.86 cm. MRI recommended to exclude possibility of neoplasm. Other findings as above Electronically Signed: Pal Hannon MD at 22:52 EST , Service support ,
--- NOTE | 2021-06-06 21:19 | ED.VIS.CHEST ---
HPI History of Present Illness Chief Complaint: Chest Pain Informant: patient and spouse/S.O. Onset/Context/Timing Onset: Today and Hours Activity at onset: gradual Timing: Continuous Current Severity: Severe Maximum Severity: Severe Worsened By: Nothing Relieved By: Nothing Associated Symptoms: Positive for Nausea and Vomiting Narrative Prior Similar Symptoms: No Recent Illness/Hospitalization: No CVD Risk Factors: Positive for Diabetes and Smoking; Negative for Hypertension PE Risk Factors: Negative for Recent Travel/Surgery, Recent Immobilization, Prior DVT or PE, Cancer and OCP + Smoking + >/=35 TAD Risk Factors: Negative for Marfan's Syndrome, Hypertension and Family History [facility] Medical History COPD (chronic obstructive pulmonary disease) Diabetes Rheumatoid arthritis Home Medications metformin 1,000 mg PO BID 06/18/17 [History Last Taken Unknown] oxycodone myristate 13.5 mg PO BID 06/18/17 [History Last Taken 05/07/19] albuterol sulfate 2 puff INHALATION Q4H PRN PRN #1 inhaler 07/24/18 [Rx Last Taken Unknown] celecoxib 200 mg PO DAILY 04/30/19 [History Last Taken Unknown] methotrexate sodium 2.5 mg PO DAILY 06/06/21 [History Last Taken Unknown] pantoprazole [Protonix] 40 mg PO DAILY #14 tab 06/07/21 [Rx Last Taken Unknown] Allergy/AdvReac Type Severity Reaction Status Date / Time No Known Allergies Allergy Verified 06/06/21 21:09 Social History Smoking Status: Current every day smoker tobacco type: cigarettes ROS ROS ED ROS Narrative Denies recent illness. Nausea and vomiting tonight after the chest pain. Review of Systems ROS Unobtainable: Denies due to encephalopathy Constitutional Constitutional ED: Denies fever(s) Eyes Eyes: Denies none ENT ENT ED: Denies ear pain, rhinorrhea or sore throat Cardiovascular Cardiovascular: Reports as per HPI and chest pain; Denies palpitations Respiratory/Chest Respiratory/Chest: Denies cough, dyspnea or sputum Gastrointestinal Gastrointestinal: Reports abdominal pain, nausea and vomiting; Denies diarrhea Genitourinary Genitourinary ED: Denies dysuria Musculoskeletal Musculoskeletal: Denies myalgias Integumentary Denies rash Neurologic Neurologic: Denies headache(s) Psychiatric Psychiatric: Denies depression Endocrine Endocrinology: Denies polyuria Hematologic/Lymphatic Hematologic/Lymphatic: Denies easy bruising Allergic/Immunologic Allergic/Immunologic ED: Denies urticaria EXAM Physical Exam Narrative Exam Narrative: 56-year-old male complaining of epigastric pain radiating to his back. Actively nausea and vomiting. H EENT exam unremarkable. Neck nontender no JVD. No lymphadenopathy. Lungs clear to auscultation bilaterally. Heart regular rhythm rate about 65 no murmur. Chest wall nontender. Abdomen soft. He does have tenderness in epigastric region. No rebound or guarding. No distention. No peritoneal signs. No pulsatile mass. Moving all 4 extremities. Nontender no edema. Back nontender. Neurologically is awake and alert with no focal motor deficits. Currently his vital signs are stable he is afebrile. Pulse ox 99% on room air. No hypoxia. His blood pressure is 154/74. Const Vital Signs: 06/06/21 21:06 06/06/21 21:11 06/06/21 21:22 Temperature 98.7 F 98.7 F Temperature Source Temporal Temporal Pulse Rate 63 68 Respiratory Rate 19 H 20 H Respiratory Effort Normal Blood Pressure 154/74 H Blood Pressure Mean 100 Pulse Ox 99 100 Oxygen Delivery Method Room Air Nasal Cannula Oxygen Flow Rate (L/min) 2 Positive well nourished and well developed; Negative for obese, cachectic, contractures or unkempt General Appearance ED: well developed; Negative for unkempt, cachectic, contractures, NAD or pallor Nutritional Appearance: Negative for cachectic or obese HEENT Reports moist mucous membranes normocephalic and atraumatic; Negative for trauma or tenderness Eyes PERRL and EOMs intact bilaterally Neck no lymphadenopathy, supple and no JVD General: Negative for tenderness Chest Wall inspection of chest normal and palpation of chest normal Chest: Negative for tenderness or other Resp normal respiratory effort and clear to auscultation bilaterally Effort and Inspection: respiratory distress Auscultation: Negative for rales, rhonchi or wheezes Cardio regular rate, regular rhythm, S1 normal heart sound, S2 normal heart sound and no murmurs Rate: Negative for bradycardia or tachycardic Rhythm: Negative for abnormal rhythm GI soft to palpation, non-distended and no masses; Negative for non-tender GI Narrative: Epigastric tenderness. No rebound or guarding. No distention. No pulsatile mass. Back/Spine no CVA tenderness Extremity normal to inspection General Extremety ED: Negative for edema or tenderness General Extremity: Negative for edema Neuro oriented x3 Sensorium / Orientation: awake, alert, oriented to person, oriented to place and oriented to time Motor Exam: strength 5/5 throughout Psych mental status grossly normal Appearance: Negative for unkempt Skin no rashes or lesions noted and no wounds General Skin Exam: Negative for jaundice or pallor MDM MDM MDM Narrative Medical decision making narrative: 56-year-old male with epigastric pain going to his back. Differential would involve an NV which on his initial EKG shows a normal sinus rhythm with no signs of an NV. Aortic dissection. Gastritis, pancreatitis, ulcer, gallbladder disease or other etiologies. Is been giving morphine and Zofran for pain and nausea undergo cardiac work-up including a lipase of the liver and a CAT scan of his chest and abdomen evaluate for possible dissection versus other etiologies. I discussed this with both the patient and his significant other. Patient returned from CAT scan vital signs are stable. He was still having pain he was given a 2nd dose of IV morphine. I reviewed the CAT scan and awaiting radiologist interpretation. I discussed with patient and his about the left renal mass that will need further evaluation. Patient still having pain despite morphine x2 also be given a GI cocktail and Protonix and be reevaluated. 2-hour troponin after the first is being obtained clinically I do not think this is cardiac etiology. Repeat exam shows epigastric tenderness at 11:20 PM. But no peritoneal signs. Repeat exam at 12:15 AM patient still having significant pain. He will be given a dose of IV Dilaudid. He has already received morphine IV x2. I have gone over all test results with patient and his . Currently we do not have any type of definitive diagnosis for his pain. EKGs x3 are unremarkable. His labs so far unremarkable. I am going a repeat troponin even though I do not have a strong suspicion this is cardiac. I spoke to his second radiologist at 12:30 AM who reviewed the films and agrees there is no signs of dissection no specific cause for the patient's pain. Lab Data Attestation: I reviewed the patient's lab results. Lab results narrative: CBC shows a white count 12.8. Hemoglobin of 15. Platelets of 186. Electrolytes gap at 9 normal BUN and creatinine. Glucose 179. Liver enzymes normal. Troponin only 3 and normal. Second troponin was done 2 hours after the first and it was 5. Lipase 58. Labs: Laboratory Results - last 24 hr 06/06/21 06/06/21 06/06/21 21:10 21:10 21:10 WBC 12.8 H RBC 4.80 Hgb 15.0 Hct 44.1 MCV 91.9 MCH 31.3 MCHC 34.0 RDW Std Deviation 44.0 H RDW Coeff of Rohan 13.2 Plt Count 186 MPV 11.6 Immature Gran % (Auto) 0.600 Neut % (Auto) 73.7 H Lymph % (Auto) 13.7 L Norton % (Auto) 7.8 Eos % (Auto) 3.7 Baso % (Auto) 0.5 Absolute Neuts (auto) 9.4 H Absolute Lymphs (auto) 1.75 Nucleated RBC % 0 Sodium 135 L Potassium 4.1 Chloride 101 Carbon Dioxide 25.0 Anion Gap 9 BUN 14 Creatinine 0.86 Estim Creat Clear Calc 108.39 Est GFR (MDRD) Af Amer 118 Est GFR (MDRD) Non-Af 97 BUN/Creatinine Ratio 16.2 Glucose 179 H Calcium 9.8 Total Bilirubin 0.70 Direct Bilirubin 0.20 AST 27 ALT 65 H Alkaline Phosphatase 52 Troponin I High Sens 3 Total Protein 7.6 Albumin 3.9 Globulin 3.7 Lipase 58 L Radiography Diagnostic Testing: Clinical Impression(s) from Imaging Studies Chest/Abdomen/Pelvis CTA 06/06/21 21:18 IMPRESSION: Examination of the chest demonstrates mild COPD and ASHD. No acute infiltration. No evidence for aortic aneurysm periaortic leak or dissection. Examination of the abdomen and pelvis demonstrates nonspecific fatty infiltration of the liver. Mild atherosclerotic changes of the aorta without evidence for aneurysm periaortic leak or dissection. Incidental finding of left renal mass measuring approximately 3.2 x 2.86 cm. MRI recommended to exclude possibility of neoplasm. Other findings as above Electronically Signed: Pal Hannon MD at 22:52 EST , Service support , Radiologist read the CTA of the chest and the abdominal CT. Radiologist did not see any signs of dissection or any other acute abnormality. I reviewed the films also and agree. I discussed with the patient. He will have outpatient follow-up for the renal mass incidental finding. Rhythm Strip Rhythm Strip: Sinus Rhythm Rate: 66 Ectopy: None EKG Initial EKG: Attestation: I personally reviewed and interpreted this EKG as follows: Interpretation: Sinus Rhythm and No Acute Injury Pattern Comments: Normal sinus rhythm rate of 66 no acute signs of NV or ischemia. Prior EKG tracings: not available for review Follow-up EKG: Attestation: I personally reviewed and interpreted this EKG as follows: Interpretation: Sinus Rhythm and No Acute Injury Pattern Comments: Repeat EKG showed a sinus bradycardia rate of 57 no acute signs of NV or ischemia unchanged from the first a third EKG was also performed shows a normal sinus rhythm rate of 64 with no acute signs of NV or ischemia. Prior EKG tracings: available for review Prior: Unchanged Discharge Plan Triage Chief Complaint: Chest Pain ED Provider: José Sargent Dx/Rx/DC Orders Clinical Impression: Abdominal pain Instructions: Abdominal Pain, ED Chest Pain, Uncertain Cause Prescriptions: New pantoprazole [Protonix] 40 mg tablet,delayed release (DR/EC) 40 mg PO DAILY Qty: 14 RF: 0 No Action metformin 500 MG tablet 1,000 mg PO BID RF: 0 oxycodone myristate 13.5 MG cap,sprinkl,ER12hr(DONT CRUSH) 13.5 mg PO BID RF: 0 albuterol sulfate 1 INHALER inhaler 2 puff inhalation Q4H PRN PRN (Reason: Wheezing) Qty: 1 RF: 0 celecoxib 200 MG capsule 200 mg PO DAILY RF: 0 methotrexate sodium 2.5 mg tablet 2.5 mg PO DAILY RF: 0 Primary Care Provider: Hans Rodríguez Referrals: Hans Rodríguez MD [Primary Care Provider] - 1-2 Days if not improving Activity Restrictions/Additional Instructions: We do not have any specific cause for your pain. Your cardiac work-up was negative. The CAT scans of your chest and abdomen showed no specific finding other than the incidental finding of the left kidney mass which will need further work-up and evaluation. You will be started on Protonix. This is a medication for your stomach in case there is gastritis which is inflammation. Follow-up with your doctor if not improving. You also need to follow-up with your doctor to have further evaluation of the left kidney abnormality that was seen tonight to make sure it is not a tumor. Follow-up with your primary care physician next several days. Return emergency department if feeling worse. Disposition Disposition: Home, Self Care
[2021-06-06] MEDS: Ondansetron 4 MG/2 ML Vial IV (21:20)
[2021-06-06] MEDS: morphine 8 MG/ML Syringe IV ×2 (21:20→21:55)
[2021-06-06 21:32] LABS: Absolute Lymphocyte Count 1.75 X10^3/uL (0.83-4.51); Absolute Neutrophil Count 9.4 X10^3/uL (2.0-7.7); Basophil# 0.07 X10^3/uL; Basophil% 0.5 % (0-1); Eosinophil# 0.47 X10^3/uL; Eosinophils% 3.7 % (0-5); Hematocrit 44.1 % (40-54); Lymphocyte # 1.75 X10^3/ul (0.83-4.51); Lymphocyte % 13.7 % (19-41); Mean Corpuscular Hgb 31.3 pg (27.0-32.0); Mean Corpuscular Volume 91.9 fL (80-94); Mean Platelet Vol. 11.6 fl (6.2-12.0); Monocyte% 7.8 % (0-10); NRBC Flagged by Analyzer 0 % (0-5); Neutrophil # 9.43 X10^3/uL (2.7-7.7); Neutrophil % 73.7 % (47-70); Platelet Count 186 K/mm3 (150-450); RBC Distribution Width CV 13.2 % (11.6-14.6); White Blood Count 12.8 K/mm3 (4.4-11.0)
[2021-06-06 21:46] LABS: Anion Gap 9 (5-15); BUN 14 mg/dL (7-18); BUN/Creat Ratio 16.2 RATIO (10-20); Calcium,Total 9.8 mg/dL (8.5-10.1); Chloride 101 mmol/L (98-107); Creatinine, Serum 0.86 mg/dL (0.70-1.30); EST Glomerular Filtration Rate 97 mL/min (>60); Est Glom Filt Rate - Afr Amer 118 mL/min (>60); Estimated Creatinine Clearance 108.39 ml/min; Glucose 179 mg/dL (74-106); Lipase 58 U/L (73-393); Potassium 4.1 mmol/L (3.5-5.1); Sodium Level 135 mmol/L (136-145); Troponin-I HS 3 pg/mL (3.0-78.0)
[2021-06-06 21:50] LABS: AST(SGOT) 27 U/L (15-37); Alanine Aminotransfer ALT/SGPT 65 U/L (16-61); Albumin, Serum 3.9 g/dL (3.2-5.0); Alkaline Phosphatase 52 U/L (45-117); Globulin 3.7 g/dL (2.2-4.2); Protein, Total 7.6 g/dL (6.4-8.2)
--- NOTE | 2021-06-06 22:26 | EKG12_ITS ---
Test Reason : REPEAT CP Blood Pressure : / mmHG Vent. Rate : 057 BPM Atrial Rate : 057 BPM P-R Int : 156 ms QRS Dur : 098 ms QT Int : 400 ms P-R-T Axes : 053 004 021 degrees QTc Int : 389 ms Sinus bradycardia Otherwise normal ECG Confirmed by CHRISTIANO NUNEZ, CASI ([id number]), publications editor TENA FLORES ([id number]) on 06/07/2021 10:21:42 AM Referred By: CATRACHITO Confirmed By:CASI ALVARADO MD
[2021-06-06 23:16] VITALS: BP 131/68; PULSE 66; RESP 14; O2SAT 95
--- NOTE | 2021-06-06 23:23 | EKG12_ITS ---
Test Reason : REPEAT Blood Pressure : / mmHG Vent. Rate : 064 BPM Atrial Rate : 064 BPM P-R Int : 160 ms QRS Dur : 094 ms QT Int : 410 ms P-R-T Axes : 054 002 023 degrees QTc Int : 422 ms Normal sinus rhythm Normal ECG Confirmed by CHRISTIANO NUNEZ, CASI ([id number]), scientific editor TENA FLORES ([id number]) on 06/07/2021 10:22:09 AM Referred By: CATRACHITO Confirmed By:CASI ALVARADO MD
[2021-06-06] MEDS: Mag Hydrox/Al Hydrox/Simeth 30 ML UDC PO (23:30)
[2021-06-07 00:08] LABS: Troponin-I HS 5 pg/mL (3.0-78.0)
[2021-06-07] MEDS: HYDROmorphone 1 MG/ML Syringe IV (00:26)
[2021-06-07 00:40] VITALS: BP 112/68; PULSE 73; RESP 19
[2021-06-07 00:57] VITALS: BP 108/64; PULSE 77; RESP 21
== END 2021-06-07 01:42 | disposition home or self-care (01) ==
PROVIDERS: Emergency Provider Emergency Medicine; PCP Family Medicine
DX: R10.9 Unspecified abdominal pain (principal); F17.210 Nicotine dependence, cigarettes, uncomplicated; J44.9 Chronic obstructive pulmonary disease, unspecified; E11.9 Type 2 diabetes mellitus without complications; M06.9 Rheumatoid arthritis, unspecified; Z79.84 Long term (current) use of oral hypoglycemic drugs; Z79.899 Other long term (current) drug therapy
CPT/HCPCS: 71275; 74174; 80048; 80076; 83690; 84484; 85025; 93005; 96365; 96375; 99285; Q9967; A4216; J2405; J3490

== ENCOUNTER 2022-12-13 16:30 | Outpatient (CLI) | payer MEDICARE, MEDICAID, SELFPAY ==
[2022-12-13 17:17] LABS: Absolute Lymphocyte Count 1.74 X10^3/uL (0.83-4.51); Absolute Neutrophil Count 5.8 X10^3/uL (2.0-7.7); Basophil# 0.06 X10^3/uL; Basophil% 0.7 % (0-1); Eosinophil# 0.35 X10^3/uL; Eosinophils% 4.1 % (0-5); Hematocrit 46.1 % (40-54); Hemoglobin 14.4 g/dL (13.0-16.5); Lymphocyte # 1.74 X10^3/ul (0.83-4.51); Lymphocyte % 20.6 % (19-41); Mean Corp Hgb Conc 31.2 g/dL (32-36); Mean Corpuscular Hgb 29.9 pg (27.0-32.0); Mean Corpuscular Volume 95.8 fL (80-94); Mean Platelet Vol. 11.9 fl (6.2-12.0); Monocyte# 0.49 X10^3/uL; Monocyte% 5.8 % (0-10); NRBC Flagged by Analyzer 0 % (0-5); Neutrophil # 5.78 X10^3/uL (2.7-7.7); Neutrophil % 68.3 % (47-70); Platelet Count 203 K/mm3 (150-450); RBC Distribution Width CV 13.8 % (11.6-14.6); RBC Distribution Width SD 47.9 fl (35.1-43.9); Red Blood Count 4.81 M/mm3 (4.6-6.2); White Blood Count 8.5 K/mm3 (4.4-11.0)
[2022-12-13 17:36] LABS: Erythrocyte Sedimentation Rate 11 mm/hr (0-20)
[2022-12-13 17:44] LABS: Prothrombin Time (Protime)PT. 13.6 SECONDS (11.7-14.9)
[2022-12-13 17:54] LABS: Hemoglobin A1c 7.8 % (3.8-5.6)
[2022-12-13 18:12] LABS: ALB/GLOB Ratio 1.1 RATIO (0.9-2.4); AST(SGOT) 27 U/L (15-37); Alanine Aminotransfer ALT/SGPT 49 U/L (16-61); Albumin, Serum 3.8 g/dL (3.2-5.0); Alkaline Phosphatase 44 U/L (45-117); Anion Gap 5 (5-15); BUN 17 mg/dL (7-18); CRP 2.98 mg/L (0.0-3.0); Calcium,Total 9.1 mg/dL (8.5-10.1); Chloride 106 mmol/L (98-107); Creatinine, Serum 0.77 mg/dL (0.70-1.30); EST Glomerular Filtration Rate 110 mL/min (>60); Est Glom Filt Rate - Afr Amer 133 mL/min (>60); Ferritin 41 ng/mL (26-388); Globulin 3.6 g/dL (2.2-4.2); Glucose 174 mg/dL (74-106); LDH 163 U/L (87-241); Potassium 3.8 mmol/L (3.5-5.1); Protein, Total 7.4 g/dL (6.4-8.2); Sodium Level 138 mmol/L (136-145)
[2022-12-15 17:07] LABS: Anti-Centromere B Ab <0.2 AI (0.0-0.9); Anti-Chromatin <0.2 AI (0.0-0.9); Anti-Jo <0.2 AI (0.0-0.9); Anti-Mitochondrial AB <20.0 Units (0.0-20.0); Anti-Scleroderma-70 AB <0.2 AI (0.0-0.9); Anti-dsDNA Ab <1 IU/mL (0-9); RNP Ab <0.2 AI (0.0-0.9); SJOGREN'S Anti-SS-A test < 0.2 AI (0.0-0.9); SJOGREN'S Anti-SS-B test < 0.2 AI (0.0-0.9); Smith Ab <0.2 AI (0.0-0.9)
[2022-12-18 21:07] LABS: Angiotensin Convert Enzyme 31 U/L (14-82); Anti-Smooth Muscle ABS 23 Units (0-19); Carbohydrate Ag 19-9 2261 36 U/mL (0-35); Ceruloplasmin 22.1 mg/dL (16.0-31.0); Copper, Serum or Plasma 98 ug/dL (69-132); Cytoplasmic Ab (C-ANCA) <1:20 titer (Neg:<1:20); HEPATITIS B SURFACE AG Negative (Negative); Haptoglobin 112 mg/dL (29-370); Hep C Antibodies Non Reactive (Non Reactive); Hepatitis A IgM Antibody Negative (Negative); Hepatitis B Core AB IgM Negative (Negative); Perinuclear Ab (P-ANCA) <1:20 titer (Neg:<1:20)
== END 2022-12-13 23:59 | disposition home or self-care (01) ==
LOC: LAB 16:36
PROVIDERS: PCP Family Medicine; Referring Provider Internal Medicine Gastroenterology; Visit Provider Internal Medicine Gastroenterology
DX: E11.9 Type 2 diabetes mellitus without complications (principal); K76.0 Fatty (change of) liver, not elsewhere classified; R11.0 Nausea; K86.9 Disease of pancreas, unspecified
CPT/HCPCS: 36415; 80053; 80074; 82140; 82164; 82390; 82525; 82728; 83010; 83036; 83516; 83615; 85025; 85610; 85652; 86140; 86225; 86235; 86256; 86301

== ENCOUNTER → 2022-12-28 | Outpatient (CLI) | payer MEDICARE, MEDICAID, SELFPAY ==
--- NOTE | 2022-12-28 09:41 | US_ITS ---
EXAM: US ABDOMEN LIMITED, LIVER ELASTOGRAPHY CLINICAL INDICATION: fatty liver TECHNIQUE: Real-time ultrasound of the abdomen with image documentation and elastography. COMPARISON: No relevant prior studies available. FINDINGS: LIVER: Increased echogenicity of the liver is nonspecific but most commonly associated with hepatic steatosis. No focal hepatic lesion. Elevated median velocity values measuring up to 2.0 (site B) with 12.1 kPa. US/Elastography Parenchyma/Organ IMPRESSION: F3-F4 (Moderate to severe liver fibrosis) Metavir score. Electronically Signed: Sam Graves (Brooks), at 16:54 EDT ,
--- NOTE | 2022-12-28 09:41 | US_ITS ---
HISTORY: fatty liver. TECHNIQUE: Palmer scale and color doppler imaging was performed of the right upper quadrant. 84 images. COMPARISON: CT 06/06/2021. FINDINGS: LIVER: 18.8 cm in length. Increased echogenicity without focal lesion demonstrated. No intrahepatic ductal dilatation. MAIN PORTAL VEIN: Patent. COMMON BILE DUCT: 2 mm in diameter. GALLBLADDER: Surgically absent. PANCREAS: Visualized proximal portion unremarkable. RIGHT KIDNEY: 11.8 cm in length with a cortical thickness of 1.4 cm. 4 x 4 x 5 mm echogenic focus in the interpolar region. No hydronephrosis. 1.3 cm cyst. US/Abdomen Limited IMPRESSION: Hepatic steatosis with hepatomegaly. Cholecystectomy. 5 mm nonobstructing right renal calculus. Small right renal cyst. Electronically Signed: Charlotte Galaviz MD at 15:49 EDT ,
== END | disposition home or self-care (01) ==
LOC: US 09:41
PROVIDERS: PCP Family Medicine; Referring Provider Internal Medicine Gastroenterology; Visit Provider Internal Medicine Gastroenterology
DX: E11.9 Type 2 diabetes mellitus without complications (principal); K76.0 Fatty (change of) liver, not elsewhere classified; R11.0 Nausea
CPT/HCPCS: 76705; 76981

== ENCOUNTER 2023-05-21 09:17 | Day surgery (SDC) | payer MEDICARE, MEDICAID, SELFPAY ==
[2023-05-21] VITALS (7 sets, daily range): BP systolic 92–145; BP diastolic 62–86; PULSE 70–94; RESP 16; TEMP 36.5–37.2; O2SAT 92–95; BMI 25.2
--- NOTE | 2023-05-21 09:25 | PCM.HP.BLA ---
History and Physical Date of Admission: 05/21/23 57 M who presents to the office today for [facility] ED 06.06. epigastric pain radiating into back. Cardiac etiology ruled out, EKGx3 WNL. Pain medication ineffective. ? Biochemical CBC, CMP, lipase without pertinent abnormality.? AST 27-ALT H65-AP 52 CTA chest/abd/pel emphysematous changes of lung lobes without nodules; prominence of fatty liver; renal lesion, MRI; colonic diverticulosis; 8mm pancreatic tail hypodense lesion PCP OV 3.8.23 abdominal pain with nausea, emesis and bloating for three weeks on a daily basis with aggravation when eating. Presented to [place] ED where he was diagnosed with pneumonia, started on antibiotics and given IVF for abd pain. PCP started omeprazole. ? Biochemical CBC, CMP, LFT ? CT Chest/abd/pel .14. lung nodules (pulmonology), patchy airspace disease has resolved; new opacities likely inflammatory; hepatic fatty infiltration. *BGI established 6.7.23 abdominal pain, bloating and nausea with emesis occurring several times a week; triggered by food intake but unable to identify a food. BM are regular and without difficulty. Diet is poor and has reduced the amount he eats; drinks pop, water and coffee. Known DMII (metformin, Januvia, glimepiride) and rheumatoid arthritis. ROS Const Constitutional: No anorexia, fatigue, fever(s), weight change or sleep problems Eyes Eyes: No change in vision ENT ENT: No abnormal hearing, difficulty swallowing, mouth lesions, tongue swelling or throat swelling Resp Respiratory: No cough or shortness of breath Cardio Cardiology: No chest pain at rest, chest pain with exertion, shortness of breath or dyspnea on exertion Gastro GI: No difficulty swallowing Genitourinary Male: No difficulty urinating or burning urination Musc Musculoskeletal: No joint pain, joint swelling, muscle weakness or decreased muscle mass Skin Skin: No hair loss in leg, yellowing of the eye, itchy eyes, rash, skin ulcer or skin swelling Neuro Neurology: No abnormal hearing, abnormal movements, confusion, unsteady gait/balance or memory loss Psych Psychiatric: No anxiety, No confusion and No memory loss Endo Endocrine: No fatigue or weight change Aller/Imm Allergy/Immunologic: No itchy eyes, throat swelling or tongue swelling Rian/Lymp Hematologic/Lymphatic: No easy bleeding, easy bruising or enlarged lymph nodes Exam Const General: cooperative and comfortable Nutritional Appearance: average body habitus and well nourished [facility] Head: normal to inspection Ears: hearing grossly normal bilaterally Nose: external nose normal Face and sinus: normal facial exam Mouth: oral mucosae normal Throat: posterior oropharynx normal Eyes General: appearance normal, both eyes and all related structures Neck Neck: normal visual inspection Chest Chest palpation & inspection: normal inspection of the chest and normal palpation of entire chest wall Resp Effort & Inspection: normal respiratory effort Auscultation: Bilateral: Clear to Auscultation Cardio Palpation: normal PMI Rate: regular rate Rhythm: regular rhythm GI Inspection: normal to inspection Auscultation: normal bowel sounds Percussion: normal to percussion Palpation: no hepatosplenomegaly Skin General: no rashes or lesions noted Neuro General: patient alert Extrem General: normal to inspection Psych Affect: normal affect Quality Reporting Tobacco Screening ([facility] 138) Smoking Status: Current every day smoker Assessment and Plan Assessment and Plan (1) Nausea: Status: Chronic Plan: Differential diagnosis for his chronic nausea does include atypical gastroesophageal reflux disease, H. pylori infection, chronic gastritis, NSAID induced gastritis or duodenitis, gastroparesis secondary to uncontrolled diabetes as, narcotic bowel syndrome. He should undergo an upper endoscopy and also a gastric emptying study to evaluate his upper GI tract. He was explained alternatives, risk, benefits including outstanding bleeding, infection, sepsis, perforation, need for emergent surgery and . Have an ASA of 3. (2) Fatty liver: Status: Chronic Plan: He does have mild fatty liver likely secondary to diabetes. He will need a FibroScan and formal ultrasound for complete evaluation. As we have blood work we be able to calculate his fib 4 score. (3) Diabetes: Status: Chronic Plan: Strict glucose control. Goal hemoglobin A1c is less than 5.5 in order to prevent any GI upset from uncontrolled diabetes. (4) Pancreatic lesion: Status: Chronic Plan: He was discovered to have a pancreatic lesion which was 8 mm in size in the pancreatic tail. He should undergo a CT with pancreatic protocol as his last CT scan was back in 2019. Orders: Orders Comprehensive Metabolic Profil Today E11.9 - Type 2 diabetes mellitus without complications, K76.0 - Fatty (change of) liver, not elsewhere classified, R11.0 - Nausea CRP Today E11.9 - Type 2 diabetes mellitus without complications, K76.0 - Fatty (change of) liver, not elsewhere classified, R11.0 - Nausea Ferritin Today E11.9 - Type 2 diabetes mellitus without complications, K76.0 - Fatty (change of) liver, not elsewhere classified, R11.0 - Nausea LDH Today E11.9 - Type 2 diabetes mellitus without complications, K76.0 - Fatty (change of) liver, not elsewhere classified, R11.0 - Nausea Hemoglobin A1c Today E11.9 - Type 2 diabetes mellitus without complications, K76.0 - Fatty (change of) liver, not elsewhere classified, R11.0 - Nausea Prothrombin Time w/INR Today E11.9 - Type 2 diabetes mellitus without complications, K76.0 - Fatty (change of) liver, not elsewhere classified, R11.0 - Nausea CBC W/Diff, Automated Today E11.9 - Type 2 diabetes mellitus without complications, K76.0 - Fatty (change of) liver, not elsewhere classified, R11.0 - Nausea Erythrocyte Sed Rate Today E11.9 - Type 2 diabetes mellitus without complications, K76.0 - Fatty (change of) liver, not elsewhere classified, R11.0 - Nausea Anti-Mitochondrial AB Today E11.9 - Type 2 diabetes mellitus without complications, K76.0 - Fatty (change of) liver, not elsewhere classified, R11.0 - Nausea ERASMO Comprehensive Panel Today E11.9 - Type 2 diabetes mellitus without complications, K76.0 - Fatty (change of) liver, not elsewhere classified, R11.0 - Nausea Hepatitis Panel Acute Today E11.9 - Type 2 diabetes mellitus without complications, K76.0 - Fatty (change of) liver, not elsewhere classified, R11.0 - Nausea Angiotensin Convert Enzyme Today E11.9 - Type 2 diabetes mellitus without complications, K76.0 - Fatty (change of) liver, not elsewhere classified, R11.0 - Nausea ANCA Today E11.9 - Type 2 diabetes mellitus without complications, K76.0 - Fatty (change of) liver, not elsewhere classified, R11.0 - Nausea Anti-Smooth Muscle ABS Today E11.9 - Type 2 diabetes mellitus without complications, K76.0 - Fatty (change of) liver, not elsewhere classified, R11.0 - Nausea Ceruloplasmin Today E11.9 - Type 2 diabetes mellitus without complications, K76.0 - Fatty (change of) liver, not elsewhere classified, R11.0 - Nausea Copper, Serum or Plasma Today E11.9 - Type 2 diabetes mellitus without complications, K76.0 - Fatty (change of) liver, not elsewhere classified, R11.0 - Nausea Haptoglobin Today E11.9 - Type 2 diabetes mellitus without complications, K76.0 - Fatty (change of) liver, not elsewhere classified, R11.0 - Nausea Ammonia Today E11.9 - Type 2 diabetes mellitus without complications, K76.0 - Fatty (change of) liver, not elsewhere classified, R11.0 - Nausea Abdomen Limited Today E11.9 - Type 2 diabetes mellitus without complications, K76.0 - Fatty (change of) liver, not elsewhere classified, R11.0 - Nausea Elastography Parenchyma/Organ Today E11.9 - Type 2 diabetes mellitus without complications, K76.0 - Fatty (change of) liver, not elsewhere classified, R11.0 - Nausea CA 19-9 Serial Monitor Today K86.9 - Disease of pancreas, unspecified I have examined the patient and the H&P has been reviewed. There are no clinical changes since date of exam.
[2023-05-21] MEDS: Lactated Ringers 1,000 ML 15 ML IV (09:58)
--- NOTE | 2023-05-21 10:45 | EGD_PTH ---
PATIENT: CLEMENTINA LOVE LOC: EN U#:[id number] AGE/SX: 58/M ROOM: RE05/21/[address]: Dr. Mateus Diego DO : 1965 BED: DIS: 05/21/2023 SPEC #: [id number] RECD: 05/21/23 13:47 STATUS: CALE REQ #: [id number] RAIFQ: 05/21/23 10:[address]: Mateus Diego DEPT: SURGICAL PATHOLOGY RECD BY: Joann Parekh ENTERED: 05/22/23 10:50 SP TYPE: EGD BIOPSY CAMRYN DR: Dr. Hans Rodríguez MD Tissues: A - Pylorus B - Gastric mucous membrane C - Esophagus, NOS Procedures: Special Stain Group II Surgery Specimen Level IV Alcian Blue/PAS (control) HEADER OPERATION: EGD ([facility]) with biopsies PRE-OP DIAGNOSIS: Nausea, fatty liver, diabetes, pancreatic lesion TISSUE SUBMITTED: A - Pylorus biopsy, B - Gastric body biopsy, C - Distal esophagus biopsy MICROSCOPIC DIAGNOSIS A. Gastric pylorus, biopsy: Chronic gastritis. Intestinal metaplasia. No evidence of dysplasia. See comment. B. Gastric body, biopsy: Chronic gastritis. Focal intestinal metaplasia. No evidence of dysplasia. See comment. D. Distal esophagus, biopsy: Gastroesophageal junctional mucosa with chronic inflammation. 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 No evidence of dysplasia. AM:jackelin 05/23/2023 COMMENT A. Alcian blue/PAS stain with matched control supports the above diagnosis. Immunohistochemistry ([id number]) for P53 and Ki-67 will be performed and results will be reported separately. B. The results of immunohistochemistry for Helicobacter pylori will be reported separately ([id number]). Alcian blue/PAS stain with matched control supports the above diagnosis. Immunohistochemistry ([id number]) for P53 and Ki-67 will be performed and results will be reported separately. C. Alcian blue/PAS stain with matched control supports the above diagnosis. Immunohistochemistry ([id number]) for P53 and Ki-67 will be performed and results will be reported separately. MICROSCOPIC DESCRIPTION Slides are reviewed. GROSS DESCRIPTION A - Received in fixative is one container labeled with the patient's name and designated pylorus biopsy. The specimen consists of two irregular fragments of light sheehan soft tissue that in aggregate measure 0.8 x 0.5 x 0.1 cm. The specimen is totally submitted in one cassette. B - Received in fixative is one container labeled with the patient's name and designated gastric body biopsy. The specimen consists of multiple irregular fragments of light sheehan soft tissue that in aggregate measure 1.0 x 0.6 x 0.1 cm. The specimen is totally submitted in one cassette. C - Received in fixative is one container labeled with the patient's name and designated distal esophagus. The specimen consists of two irregular fragments of light sheehan soft tissue that in aggregate measure 0.7 x 0.5 x 0.1 cm. The specimen is totally submitted in one cassette. / AM:jackelin 05/22/2023 TC:3 CPT: 01870 x3, 64765 x3
--- NOTE | 2023-05-21 10:45 | IMM_PTH ---
PATIENT: CLEMENTINA LOVE LOC: EN U#:[id number] AGE/SX: 58/M ROOM: RE05/21/[address]: Dr. Mateus Diego DO : 1965 BED: DIS: 05/21/2023 SPEC #: [id number] RECD: 05/22/23 13:42 STATUS: CALE REQ #: [id number] RAFIQ: 05/21/23 10:[address]: Mateus Diego DEPT: IMMUNOHISTOCHEMISTRY RECD BY: Meche Peralta ENTERED: 05/22/23 13:42 SP TYPE: IMMUNO OTHR DR: Dr. Hans Rodríguez MD Tissues: B - Stomach, NOS A - Pyloric antrum C - Esophagus, NOS Procedures: H Pylori (initial) P53 (initial) KI-67 (add) P53 (add) MOC-31 (add) PHYSICIAN & INSTITUTION [place] [id number] SPECIMEN INFORMATION: Tissue Source: A - Pylorus, B - Gastric body, C - Distal esophagus Clinical Info: Nausea, fatty liver, pancreatic lesion Specimen Number: [id number] A-C CPT code: 32209 x3, 82493 x7 METHODOLOGY: Deparaffinized sections of prefer/formalin-fixed tissue or PAP/DQ stained slides are incubated with monoclonal/polyclonal antibodies/oligonucleotide probes. Localization is made via biotin free immunoperoxidase method. Appropriate controls are performed and reacted as expected. Results on target cell population are indicated in the following table: RESULTS: ANTIBODY / CLONE RESULT Block A P53 (DO-7) positive, wild type pattern Ki-67 (30-9) positive, moderate MOC-31 (4561) positive Block B H Pylori (polyclonal) negative P53 (DO-7) positive, wild type pattern Ki-67 (30-9) positive, low MOC-31 (4561) positive Block C P53 (DO-7) positive, wild type pattern Ki-67 (30-9) positive, low MOC-31 (4561) positive These tests were developed and their performance characteristics determined by [facility]. They may not have been cleared or approved by the U.S. Food and Drug Administration. The FDA has determined that such clearance or approval is not necessary. The above immunohistochemical/dualISH markers are ordered and reviewed by the Pathologist. INTERPRETATION: A. Pylorus, biopsy: No evidence of dysplasia. B. Gastric body, biopsy: No evidence of dysplasia. Negative for Helicobacter pylori organisms. C. Distal esophagus, biopsy: No evidence of dysplasia. AM:jackelin 05/24/2023
[2023-05-21 11:02] LABS: Bedside Glucose 152 mg/dL (74-106)
--- NOTE | 2023-05-21 11:19 | OP.EGD_ITS ---
Patient Name: Shamir Vann Procedure Date: 05/21/2023 10:58 AM Date of : 1965 Age: 58 Procedure: Upper GI endoscopy Indications: Epigastric abdominal pain, Functional Dyspepsia Providers: Mateus Diego DO Referring MD: Hans Rodríguez Md Medicines: Monitored Anesthesia Care Patient Profile: This is a 58 year old male. Refer to note in patient chart for documentation of history and physical. Patient has symptoms of chronic abdominal distention and chronic epigastric abdominal pain. Complications: No immediate complications. Procedure: Pre-Anesthesia Assessment: - Prior to the procedure, a History and Physical was performed, and patient medications and allergies were reviewed. The risks and benefits of the procedure and the sedation options and risks were discussed with the patient. All questions were answered and informed consent was obtained. Patient identification and proposed procedure were verified by the physician. Mental Status Examination: alert and oriented. Airway Examination: normal oropharyngeal airway and neck mobility. Respiratory Examination: clear to auscultation. CV Examination: normal. Prophylactic Antibiotics: The patient does not require prophylactic antibiotics. Prior Anticoagulants: The patient has taken no anticoagulant or antiplatelet agents. ASA Grade Assessment: II - A patient with mild systemic disease. After reviewing the risks and benefits, the patient was deemed in satisfactory condition to undergo the procedure. The anesthesia plan was to use monitored anesthesia care (MAC). Immediately prior to administration of medications, the patient was re-assessed for adequacy to receive sedatives. The heart rate, respiratory rate, oxygen saturations, blood pressure, adequacy of pulmonary ventilation, and response to care were monitored throughout the procedure. The physical status of the patient was re-assessed after the procedure. After obtaining informed consent, the endoscope was passed under direct vision. Throughout the procedure, the patient's blood pressure, pulse, and oxygen saturations were monitored continuously. The gastroscope was introduced through the mouth, and advanced to the second part of duodenum. The upper GI endoscopy was accomplished without difficulty. The patient tolerated the procedure well. Scope In: 11:09:18 AM Scope Out: 11:13:01 AM Total Procedure Duration Time 0 hours 3 minutes 43 seconds Findings: The Z-line was irregular and was found 40 cm from the incisors. Biopsies were taken with a cold forceps for histology. Verification of patient identification for the specimen was done. Estimated blood loss was minimal. Scattered mild inflammation characterized by congestion (edema), erosions, erythema and friability was found in the gastric body and at the pylorus. Biopsies were taken with a cold forceps for histology. Verification of patient identification for the specimen was done. Biopsies were taken with a cold forceps for Helicobacter pylori testing. Verification of patient identification for the specimen was done. Estimated blood loss was minimal. Food (residue) was found in the duodenal bulb. Impression: - Z-line irregular, 40 cm from the incisors. Biopsied. - Bile gastritis. Biopsied. - Retained food in the duodenum. Recommendation: - Discharge patient to home. - Resume previous diet. - Continue present medications. - Await pathology results. - Gastric emptying study - HIDA scan to quantify the amount of duodenal gastric reflux Procedure Code(s): --- Professional --- 93311, Esophagogastroduodenoscopy, flexible, transoral; with biopsy, single or multiple CPT copyright 2021 [employer]. All rights reserved. The codes documented in this report are preliminary and upon nursing home director review may be revised to meet current compliance requirements. Mateus Diego DO 05/21/2023 11:18:51 AM This report has been signed electronically. Number of Addenda: 0 Note Initiated On: 05/21/2023 10:58 AM
--- NOTE | 2023-05-21 11:19 | OP.CCLET_ITS ---
05/21/2023 Hans Rodríguez Md Re : Upper GI endoscopy procedure for Shamir Vann Dear Dr. Rodríguez This procedure was performed on Sunday, May 21, 2023. My impressions and recommendations are as follows: Impressions : - Z-line irregular, 40 cm from the incisors. Biopsied. - Bile gastritis. Biopsied. - Retained food in the duodenum. Recommendations : - Discharge patient to home. - Resume previous diet. - Continue present medications. - Await pathology results. - Gastric emptying study - HIDA scan to quantify the amount of duodenal gastric reflux My findings are described in the full procedure note, which is enclosed. If I can be of further assistance, please feel free to contact me at . Sincerely, Mateus Diego, 05/21/2023 11:18:51 AM This report has been signed electronically.
== END 2023-05-21 11:54 | disposition home or self-care (01) ==
LOC: EN 09:19 → AC 09:21
PROVIDERS: PCP Family Medicine; Referring Provider Family Medicine; Visit Provider Internal Medicine Gastroenterology
PROC: 0DJ08ZZ Inspection of Upper Intestinal Tract, Via Natural or Artificial Opening Endoscopic (ICD-10-PCS; CPT 43235; principal; 2023-05-21 10:40)
DX: K31.A0 Gastric intestinal metaplasia, unspecified (principal); E11.9 Type 2 diabetes mellitus without complications; K29.50 Unspecified chronic gastritis without bleeding; Z79.51 Long term (current) use of inhaled steroids; F17.200 Nicotine dependence, unspecified, uncomplicated; K76.0 Fatty (change of) liver, not elsewhere classified; K86.9 Disease of pancreas, unspecified; Z79.899 Other long term (current) drug therapy; Z79.84 Long term (current) use of oral hypoglycemic drugs; K21.00 Gastro-esophageal reflux disease with esophagitis, without bleeding; E78.00 Pure hypercholesterolemia, unspecified; K22.70 Barrett's esophagus without dysplasia
CPT/HCPCS: 43239; 81002; 82962; 88305; 88313; 88341; 88342; J7120; J2405

== ENCOUNTER → 2023-06-06 | Outpatient (CLI) | payer MEDICARE, MEDICAID, SELFPAY ==
--- NOTE | 2023-06-06 09:44 | NM_ITS ---
CLINICAL: 58-year-old male with history of right upper quadrant pain status post cholecystectomy. RADIONUCLIDE HEPATOBILIARY SCINTIGRAPHY COMPARISON: None available FINDINGS: Following the intravenous administration of 5.1 mCi of 99m Tc Mebrofenin, hepatobiliary images reveal: 1. Relatively homogeneous radiopharmaceutical concentration is noted by a normal sized liver. No parenchymal defects are identified. 2. Gallbladder activity is not identified during 17 minutes of sequential imaging commensurate with known history of prior cholecystectomy. 3. Small intestinal tract is observed at approximately 11-12 minutes post radiopharmaceutical administration. 4. Washout of the radiopharmaceutical by the hepatic parenchyma appears qualitatively delayed. 5. The patient terminated acquisition at 17 minutes post radiotracer provision. NM/Hepatobilliary Imaging IMPRESSION: 1. Nonvisualization of the gallbladder is consistent with prior cholecystectomy. 2. TECHNICALLY INADEQUATE examination with patient image acquisition terminated at 17 minutes post radiopharmaceutical administration. Electronically Signed: Anthony Leon DO at 22:53 EST ,
== END | disposition home or self-care (01) ==
LOC: NM 09:41
PROVIDERS: PCP Family Medicine; Referring Provider Internal Medicine Gastroenterology; Visit Provider Internal Medicine Gastroenterology
DX: R10.11 Right upper quadrant pain (principal); Z90.49 Acquired absence of other specified parts of digestive tract
CPT/HCPCS: 78226; A9537

== ENCOUNTER → 2024-12-11 | Outpatient (CLI) | payer MEDICARE, MEDICAID, SELFPAY ==
--- NOTE | 2024-12-11 09:30 | US_ITS ---
PROCEDURE: ABD LIMITED W/ ELASTOGRAPHY REASON FOR EXAM: FATTY LIVER COMPARISON: Abdominal ultrasound on 12/28/2022. TECHNIQUE: Right upper quadrant abdominal ultrasound. [facility] ElastQ Imaging shear wave elastography for non-invasive assessment of liver tissue stiffness. [facility] EPIQ Elite. FINDINGS: LIVER: Size: Grossly normal Length: 16.3 cm Echotexture: Diffusely echogenic suggesting fatty infiltration Contour: Normal Lesions: None identified Elastography: EQI Med: 9.1 kPa EQI Med Zaid: 1.74 m/s IQR/Med: 15.0-25.8 %* GALLBLADDER: Surgically absent. COMMON BILE DUCT: Normal measuring 4 mm. PANCREAS: Obscured by bowel gas. Anechoic lesion at the lower pole of the right kidney measuring 1.4 cm avascular, likely simple cyst. The right kidney measures 11.6 x 6.6 x 6.1 cm. No right upper quadrant ascites. US/ABD Limited w/ Elastography IMPRESSION: MODERATE TO SEVERE HEPATIC FIBROSIS Reference Values: SRU <1.37 m/s (5.7kPa): No to mild fibrosis 1.37 m/s - 2.2 m/s: Moderate to severe fibrosis >2.2 m/s (15kPa): Significant fibrosis / cirrhosis METAVIR Score F2 or higher: 1.34 m/s (5.7kPa) F3 or higher: 1.55 m/s (7.3kPa) F4: 1.80 m/s (10kPa) * If the IQR/Med is >30%, the variance in the measurements is a large and the a ccuracy of the measurement may be in question. Reading Location: [id number]
== END | disposition home or self-care (01) ==
LOC: US 09:30
PROVIDERS: PCP Family Medicine; Referring Provider Internal Medicine Gastroenterology; Visit Provider Internal Medicine Gastroenterology
DX: K76.0 Fatty (change of) liver, not elsewhere classified (principal)
CPT/HCPCS: 76705; 76981